=== PATIENT | female | born 1945 | race African-American/Black ===

== ENCOUNTER 2024-02-21 11:51 | Observation (INO) | payer OTHER ==
[~2024-02-21] VITALS: Ht 154.9 cm; Wt 78.5 kg
[2024-02-21 11:57] VITALS: BP 194/99; PULSE 74; RESP 16; TEMP 97.5; O2SAT 99
[2024-02-21] MEDS ORDERED: hydrALAZINE 20 MG/ML VIAL IVP ONE (12:45)
[2024-02-21 13:20] LABS: ALANINE AMINOTRANSFERASE 15 U/L (12-78); ALBUMIN 3.4 g/dL (3.4-5.0); ALKALINE PHOSPHATASE 73 U/L (50-136); ANION GAP 11.3 (8-16); ASPARTATE AMINOTRANSFERASE 26 U/L (15-37); CALCIUM 9.3 mg/dL (8.5-10.1); CARBON DIOXIDE 31.2 mmol/L (21-32); CHLORIDE 105 mmol/L (98-107); GLUCOSE 90 mg/dL (74-106); POTASSIUM 3.5 mmol/L (3.5-5.1); SODIUM SERUM 144 mmol/L (136-145); TOTAL BILIRUBIN 0.5 mg/dL (0.0-1.0); TOTAL PROTEIN, SERUM 8.8 g/dL (6.4-8.2); UREA NITROGEN, BLOOD 12 mg/dL (7-18)
[2024-02-21 13:38] LABS: HEMOGLOBIN 12.2 g/dL (12.0-16.0); MEAN CORPUSCULAR HEMOGLOBIN 30 pg (27-31); MEAN CORPUSCULAR HGB CONC 35 g/dL (33-37); MEAN CORPUSCULAR VOLUME 86.6 fL (80-94); PLATELET COUNT (AUTO) 173 K/uL (140-450); RED BLOOD CELL COUNT(AUTO) 4.05 MIL/uL (4.20-5.40); RED CELL DISTRIBUTION WIDTH 15.2 % (11.6-13.7); WHITE BLOOD COUNT (AUTO) 3.2 K/uL (4.8-10.8)
[2024-02-21 13:47] LABS: LYMPHOCYTES % (MANUAL) 34 % (20-46); MONOCYTES % (MANUAL) 11 % (5-12)
[2024-02-21] MEDS ORDERED: AMLO5TAB PO (13:49)
[2024-02-21] MEDS ORDERED: POTASSIUM CHLORIDE 10 MEQ TABER PO PRN (14:45)
[2024-02-21] MEDS ORDERED: ONDANSETRON 4 MG/2 ML VIAL IVP PRN (14:45)
[2024-02-21] MEDS ORDERED: KCL 20 MEQ IN 100 mL PREMIX 200 ML IV PRN (14:45)
[2024-02-21] MEDS ORDERED: MORPHINE SULFATE 2 MG/ML SYR IVP PRN (14:45)
[2024-02-21] MEDS ORDERED: MAGNESIUM OXIDE 400 MG TAB PO PRN (14:45)
[2024-02-21] MEDS ORDERED: HYDROcodone/APAP 5/325 MG 1 TAB TAB PO PRN (14:45)
[2024-02-21] MEDS ORDERED: hydrALAZINE 20 MG/ML VIAL IM PRN (14:50)
[2024-02-21] MEDS ORDERED: CLAR500T99 PO (14:56)
[2024-02-21] MEDS ORDERED: TYL120S PO (14:56)
[2024-02-21] MEDS ORDERED: METO100T14 PO (14:56)
[2024-02-21] MEDS ORDERED: ASPI-1822 PO (14:56)
[2024-02-21] MEDS ORDERED: HYDR-4004 PO (15:11)
[2024-02-21] MEDS ORDERED: LOSA-272 PO (15:11)
[2024-02-21] MEDS ORDERED: BACL10TA4 PO (15:11)
[2024-02-21] MEDS: NIFEdipine 60 MG TABER PO SCH (15:32)
[2024-02-21 16:07] VITALS: BP 164/93; PULSE 68; RESP 18; TEMP 97; O2SAT 100
[2024-02-21 16:10] VITALS: PULSE 68; RESP 18; O2SAT 100
[2024-02-21 16:43] VITALS: BP 143/94; PULSE 70; RESP 18; TEMP 97; O2SAT 100
[2024-02-21 18:36] VITALS: PULSE 72
[2024-02-21 20:00] VITALS: BP 139/75; PULSE 74; RESP 16; TEMP 95.7; O2SAT 95
[2024-02-21] MEDS: carvediloL 6.25 MG TAB PO SCH (20:05)
[2024-02-22] VITALS (8 sets, daily range): BP systolic 92–125; BP diastolic 45–80; PULSE 65–75; RESP 16–18; TEMP 97.7–98.6; O2SAT 91–96
[2024-02-22] MEDS: MELATONIN 3 MG TAB PO PRN (00:44)
[2024-02-22] MEDS: MELATONIN 3 MG TAB ONE (00:50)
[2024-02-22 05:51] LABS: BASOPHILS % (AUTO) 0.2 % (0.0-2.0); EOSINOPHILS % (AUTO) 0.8 % (0.0-4.0); HEMATOCRIT 32.9 % (36-48); HEMOGLOBIN 11.4 g/dL (12.0-16.0); LYMPHOCYTES # (AUTO) 1.7 K/uL (2.5-16.5); LYMPHOCYTES % (AUTO) 48.8 % (20.5-51.1); MEAN CORPUSCULAR HEMOGLOBIN 30 pg (27-31); MEAN CORPUSCULAR HGB CONC 35 g/dL (33-37); MEAN CORPUSCULAR VOLUME 86.3 fL (80-94); MONOCYTES # (AUTO) 0.4 K/uL (0.8-1.0); MONOCYTES % (AUTO) 10.3 % (1.7-9.3); NEUTROPHILS # (AUTO) 1.4 K/uL (1.8-7.7); NEUTROPHILS % (AUTO) 39.9 % (42.2-75.2); PLATELET COUNT (AUTO) 166 K/uL (140-450); RED BLOOD CELL COUNT(AUTO) 3.82 MIL/uL (4.20-5.40); RED CELL DISTRIBUTION WIDTH 15.3 % (11.6-13.7); WHITE BLOOD COUNT (AUTO) 3.5 K/uL (4.8-10.8)
[2024-02-22 06:20] LABS: ANION GAP 12.2 (8-16); CARBON DIOXIDE 28.5 mmol/L (21-32); CHLORIDE 106 mmol/L (98-107); GLUCOSE 105 mg/dL (74-106); POTASSIUM 3.7 mmol/L (3.5-5.1); SODIUM SERUM 143 mmol/L (136-145); UREA NITROGEN, BLOOD 13 mg/dL (7-18)
[2024-02-22] MEDS: ENOXAPARIN 40 MG/0.4 ML SYR SUBQ SCH (09:47)
[2024-02-22] MEDS: MEDS-TO-BEDS MC SCH (09:51)
[2024-02-22] MEDS ORDERED: NACL 0.9% 1,000 ML IV SCH (11:25)
[2024-02-22] MEDS: ACETAMINOPHEN 325 MG TAB PO PRN (12:05)
[2024-02-22] MEDS: LIDOCAINE 5% 1 EA PATCH TP SCH (12:18)
[2024-02-22] MEDS: NACL 0.9% 500 ML IV SCH (12:45)
[2024-02-22] MEDS ORDERED: NIFE90TE3 PO (15:05)
[2024-02-23] MEDS ORDERED: NIFEdipine 90 MG TABER PO SCH (09:00)
== END 2024-02-22 17:20 | disposition home or self-care (01) ==
LOC: MED 11:51 → MTU 14:46
PROVIDERS: ADMIT Student in an Organized Health Care Education/Training Program; ATTEND Student in an Organized Health Care Education/Training Program
DX: I10 Essential (primary) hypertension (principal); I16.0 Hypertensive urgency; E66.9 Obesity, unspecified; R07.81 Pleurodynia; E78.5 Hyperlipidemia, unspecified; R79.89 Other specified abnormal findings of blood chemistry; D72.819 Decreased white blood cell count, unspecified; Z68.32 Body mass index [BMI] 32.0-32.9, adult
CPT/HCPCS: 36415; 70450; 71045; 80048; 80053; 83735; 83880; 84484; 85025; 87081; 93005; 96372; 99285; G0378; J1650